=== PATIENT | female | born 1955 | race Caucasian/White ===

== ENCOUNTER → 2016-08-12 | Outpatient (CLI) | payer BC | END | disposition home or self-care (01) | LOC: GMAB 11:11 | PROVIDERS: ATTEND Family Medicine | DX: M25.542 Pain in joints of left hand (principal); Z00.01 Encounter for general adult medical examination with abnormal findings ==

== ENCOUNTER → 2017-06-08 | Outpatient (CLI) | payer BC ==
--- NOTE | 2017-06-08 21:03 | MRI ---
EXAM DESCRIPTION: Shoulder,Right: MRI. CLINICAL HISTORY: SHOULDER PAIN COMPARISON: None. TECHNIQUE: Multiplanar, high-field MRI, multiple sequences, without contrast: Right shoulder. FINDINGS: Full-thickness tear of the anterior and mid distal right supraspinatus tendon at the critical zone. This tear is approximately 1 cm long. This is associated with a cortical erosive lesion at the insertion site. The tendon is partially retracted, and inferior fibers are torn more proximally. More anteriorly the anterior rim fibers demonstrate fluid signal on the bursal surface above the insertion. Edema is noted in the distal posterior fibers. Effusion in the subacromial-subdeltoid bursa. Edema and intermediate signal in the infraspinatus tendon. Erosive cortical lesion in the posterior greater tuberosity. Intermediate signal in the distal subscapularis tendon. Intermediate signal in the musculotendinous junction of the infraspinatus. No muscle atrophy. Subcortical edema on the lesser tuberosity at the insertion of the subscapularis tendon. No significant muscle atrophy in the rotator cuff. Effusion in the AC joint with subchondral edema in the acromion facet. Spur on the distal undersurface of the clavicle which is flattening the coracoacromial arch. Superior and inferior expansion of the joint capsule. Coracoid ligaments are intact. Fluid in the subcoracoid bursa. Type II lateral acromion. Minimal downsloping of the lateral acromion. Effusion in the glenohumeral joint. Fluid signal in the mid posterior glenoid labrum. No loose bodies. Posterior location of the bicipital labral anchor; long head biceps tendon within the bicipital groove. Minimal fluid in the suprascapular notch that no large cyst. No osteochondral lesions of the glenohumeral joint. Question of a tear of the posterior band of the inferior glenohumeral ligament at the labral insertion. IMPRESSION: 1. Full-thickness tear and proximal retraction of some of the anterior fibers of the supraspinatus tendon. The anterior rim fibers demonstrated bursal surface tear. Bone changes at the insertion on the greater tuberosity. Effusion in the subacromial-subdeltoid bursa. 2. Tendinopathy versus degeneration at the insertion of the subscapularis tendon and most of the infraspinatus tendon. No significant muscle atrophy. 3. Moderate arthrosis of the acromioclavicular joint with flattening of the coracoacromial arch due to clavicular spurs, joint capsule, and morphology of the acromion. Subcoracoid bursitis. 4. Small focal tear in the mid to superior aspect of the posterior glenoid labrum. This is adjacent to what may represent a partial tear of the posterior band of the inferior glenohumeral ligament. MR arthrography or CT arthrography may be more sensitive to demonstrate diffuse lesions. Minimal fluid in the suprascapular notch. Electronically signed by: Cortez Trejo MD 06/08/2017 9:02 PM [facility]
== END ==
LOC: MRI 11:01
PROVIDERS: ATTEND Family Medicine
DX: M75.121 Complete rotator cuff tear or rupture of right shoulder, not specified as traumatic (principal); M19.011 Primary osteoarthritis, right shoulder

== ENCOUNTER → 2017-07-07 | Outpatient (CLI) | payer BC | LOC: GMAB 11:52 | PROVIDERS: ATTEND Family Medicine | DX: Z00.01 Encounter for general adult medical examination with abnormal findings (principal) ==

== ENCOUNTER → 2018-08-04 | Outpatient (CLI) | payer BC | LOC: GMAE 11:49 | PROVIDERS: ATTEND Family Medicine | DX: Z00.01 Encounter for general adult medical examination with abnormal findings (principal); D50.8 Other iron deficiency anemias; D64.9 Anemia, unspecified ==

== ENCOUNTER → 2019-08-15 | Outpatient (CLI) | payer BC | LOC: GMAE 11:27 | PROVIDERS: ATTEND Family Medicine | DX: Z00.00 Encounter for general adult medical examination without abnormal findings (principal) ==